=== PATIENT | male | born 1995 | race Caucasian/White ===

== ENCOUNTER 2020-09-17 17:53 | Emergency (ER) | payer BC, SELFPAY ==
[2020-09-17 17:54] VITALS: BP 124/71; PULSE 70; RESP 16; TEMP 37.5; O2SAT 97; BMI 30.1
[2020-09-17 17:57] VITALS: BP 124/71; PULSE 81; RESP 16; TEMP 37.5; O2SAT 96
--- NOTE | 2020-09-17 18:10 | ED.RN ---
PT DENIES ANY LOC WITH INJURY, PT WITH PAIN TO LEFT CHEEK, BRUISING NOTED UNDER LEFT EYE.
--- NOTE | 2020-09-17 18:44 | RAD_ITS ---
EXAM: XR LEFT SHOULDER COMPLETE, 2 OR MORE VIEWS : 1994 CLINICAL INDICATION: INjury TECHNIQUE: Two or more views of the left shoulder. This report was created using [employer] report generation technology. COMPARISON: None. FINDINGS: BONES/JOINTS: Unremarkable. No acute fracture. No subluxation. Normal alignment. Preservation of the joint space. No sclerotic or destructive changes observed. SOFT TISSUES: Unremarkable. No soft tissue swelling or gas. No radiopaque foreign body. RAD/Shoulder min 2 Views IMPRESSION: Negative left shoulder x-rays. at 1937 Reported and signed by: Jean Marie Cardenas MD Electronically Signed: Jean Marie Cardenas MD at 19:36 EDT Tel , Service support ,
--- NOTE | 2020-09-17 18:44 | CT_ITS ---
EXAM: CT HEAD WITHOUT INTRAVENOUS CONTRAST : 1994 CLINICAL INDICATION: Face injury TECHNIQUE: Multiple axial images were obtained of the head without intravenous contrast. This CT exam was performed using one or more of the following dose reduction techniques: automated exposure control, adjustment of the mA and/or kV according to patient size, and/or use of iterative reconstruction technique. This report was created using [employer] report generation technology. COMPARISON: None. FINDINGS: BRAIN AND EXTRA-AXIAL SPACES: Unremarkable. No intra- or extra-axial hemorrhage. No evidence of acute infarct. No intracranial mass or mass effect. There is preservation of the chun/white matter interface. Posterior fossa structures are unremarkable. Ventricles are appropriate for age. No hydrocephalus. Basal cisterns are patent. BONES/JOINTS: There is a fracture of the left zygomatic arch. No discrete lytic or blastic abnormalities. SINUSES: There is gas anterior to the left orbit and the lateral to the left maxillary sinus. MASTOID AIR CELLS: Unremarkable. Clear. ORBITS: Visualized globes, extraocular muscles, optic nerves and retrobulbar fat appear unremarkable. CT/Brain/Head without Contrast IMPRESSION: 1. No acute intracranial abnormality. 2. Fracture of the left zygomatic arch with gas anterior to the orbit and lateral to the left maxillary sinus. Further evaluation with CT scan of the facial bones is recommended. Individualized dose optimization techniques were used for this CT. at 1939 Reported and signed by: Jean Marie Cardenas MD Electronically Signed: Jean Marie Cardenas MD at 19:37 EDT Tel , Service support ,
--- NOTE | 2020-09-17 18:44 | CT_ITS ---
EXAM: CT MAXILLOFACIAL WITHOUT INTRAVENOUS CONTRAST : 1994 CLINICAL INDICATION: Trauma left sided face pain TECHNIQUE: Helically acquired images were obtained of the face without intravenous contrast. This CT exam was performed using one or more of the following dose reduction techniques: automated exposure control, adjustment of the mA and/or kV according to patient size, and/or use of iterative reconstruction technique. This report was created using [employer] report generation technology. COMPARISON: None. FINDINGS: BONES/JOINTS: There is a fracture of the left zygomatic arch. There is a fracture of the lateral wall of the left maxillary sinus. No discrete lytic or blastic abnormalities. SOFT TISSUES: See below. ORBITS: There is a small amount of gas in the retro-orbital fat and extraocular muscles. There is also gas anterior to the left orbit and lateral to the left maxillary sinus. Both globes are unremarkable. SINUSES: See above. MASTOID AIR CELLS: Unremarkable as visualized. Clear. DENTAL: No acute findings. No periodontal osseous erosion. CT/Sinus/Facial Bone IMPRESSION: Fractures of the left zygomatic arch and lateral wall of the left maxillary sinus. There is gas anterior to the orbit and lateral to the left maxillary sinus. There is minimal retro-orbital vascular is all extraconal. Individualized dose optimization techniques were used for this CT. at 1946 Reported and signed by: Jean Marie Cardenas MD Electronically Signed: Jean Marie Cardenas MD at 19:45 EDT Tel , Service support ,
--- NOTE | 2020-09-17 18:45 | EX.ED.DYSGE1 ---
HPI History of Present Illness Chief Complaint: Edema Informant: patient Narrative Narrative: Patient is a 25-year-old previously healthy male who presents to the emergency department for facial injury. He states that somebody ran into him with her head playing flag football today. He has been having severe pain since. He went to blow his nose and he felt the left side of his face blow up with air. Whenever he pushed on the face he felt air coming out around his gums. He denies any vision changes. No blurred vision or double vision. No ear pain or ringing. No neck pain. He is complaining of left shoulder pain. He has not taken anything for symptoms. No other injury noted. He did not have a loss of consciousness. He is not any blood thinning medications. PFSH PFSH Home Medications amoxicillin-pot clavulanate [Augmentin] 1 tab PO BID #10 tab 09/17/20 [Rx Last Taken Unknown] hydrocodone-acetaminophen 1 tab PO Q8H PRN 3 Days #10 tab 09/17/20 [Rx Last Taken Unknown] Allergy/AdvReac Type Severity Reaction Status Date / Time No Known Allergies Allergy Verified 09/17/20 17:57 Social History Smoking Status: Current some day smoker tobacco type: e-cigarettes ROS ROS ED Constitutional Constitutional ED: Denies chills or fever(s) Eyes Eyes: Denies blurry vision, change in vision or diplopia ENT ENT ED: Denies ear pain, epistaxis or rhinorrhea Cardiovascular Cardiovascular: Denies chest pain or palpitations Respiratory/Chest Respiratory/Chest: Denies cough or dyspnea Gastrointestinal Gastrointestinal: Denies abdominal pain, diarrhea, nausea or vomiting Musculoskeletal Musculoskeletal: Reports arthralgias; Denies back pain or neck pain Integumentary Denies rash Neurologic Neurologic: Reports headache(s); Denies dizziness, paresthesias or weakness EXAM Physical Exam Const Vital Signs: 09/17/20 17:54 09/17/20 17:57 Temperature 99.5 F H 99.5 F H Temperature Source Temporal Temporal Pulse Rate 70 81 Respiratory Rate 16 16 Blood Pressure 124/71 H 124/71 H Blood Pressure Mean 88 88 Pulse Ox 97 96 Oxygen Delivery Method Room Air Room Air Positive well nourished and well developed General Appearance ED: well developed and NAD HEENT Reports TM's clear and moist mucous membranes HEENT Narrative: There is swelling and bruising under the left eye. No proptosis. Full range of motion of ocular movements without pain. trauma Tympanic Membrane ED: Yes TM's clear Eyes PERRL and EOMs intact bilaterally Neck supple General: Negative for tenderness Chest Wall inspection of chest normal Resp normal respiratory effort and clear to auscultation bilaterally Auscultation: Negative for rales, rhonchi or wheezes Cardio regular rate, regular rhythm and no murmurs GI normal to inspection, nondistended, normoactive bowel sounds and non-tender Palpation: soft; Negative for guarding or rebound tenderness present Back/Spine Cervical Spine: Negative for cervical spine tenderness Thoracic Spine / Upper Back: Negative for thoracic spinal tenderness Lumbar Spine / Lower Back: Negative for lumbar spinal tenderness Extremity normal to inspection Extremity Narrative: Tenderness to superior part of left shoulder. No obvious deformity. Full range of motion. 2+ radial pulse. General Extremety ED: Negative for edema General Extremity: Negative for edema Neuro oriented x3, CN's II-XII intact bilaterally and no sensory deficits noted Sensorium / Orientation: alert Motor Exam: strength 5/5 throughout Psych mental status grossly normal Skin no rashes or lesions noted MDM MDM MDM Narrative Medical decision making narrative: Patient presents to the ED for facial injury. He does have swelling and bruising under the left eye but no evidence of impingement. He is also complaining of left shoulder pain. Will check CT scan of the head and facial bones. Will check x-rays of the shoulder and clavicle. Patient given a [place] for symptomatic treatment. Patient CT scan did show evidence of zygomatic arch and maxillary sinus wall fracture. No orbital entrapment. Patient placed on antibiotic and given sinus precautions. He is given referral for ear nose and throat. Given a prescription for pain medication. The rest of the imaging did not reveal any acute traumatic findings. Return precautions are reviewed with him. He understands and is agreeable to plan. Discharged home in stable condition. All questions are answered. Discharge Plan Triage Chief Complaint: Edema ED Provider: Denilson Powers Dx/Rx/DC Orders Clinical Impression: Closed fracture of zygomatic arch, Closed fracture of maxillary sinus Instructions: ED Facial Fracture Prescriptions: New hydrocodone-acetaminophen 5-325 mg tablet 1 tab PO Q8H PRN (Reason: pain) 3 Days Qty: 10 RF: 0 amoxicillin-pot clavulanate [Augmentin] 875-125 mg tablet 1 tab PO BID Qty: 10 RF: 0 Primary Care Provider: Noemí Cuellar Referrals: Noemí Cuellar MD [Primary Care Provider] - Sebastián Conner MD [STAFF PHYSICIAN] - 2 Days Disposition Disposition: Home, Self Care Discharge Date/Time: 09/17/20 21:04
--- NOTE | 2020-09-17 18:48 | RAD_ITS ---
STUDY: X-RAY - LEFT CLAVICLE REASON FOR EXAM: Male, 25 years old. Injury TECHNIQUE: Complementary view(s) of the clavicle. COMPARISON: None. FINDINGS: Normal clavicle. Normal acromioclavicular articulation. Normal visualized sternoclavicular articulation. Normal visualized pulmonary apex. RAD/Clavicle IMPRESSION: Normal x-ray examination of the clavicle. Electronically Signed: Jose M nKott MD at 19:24 EDT Tel , Service support ,
[2020-09-17] MEDS: HYDROcodone Bitartrate/Apap 5/325 Tablet PO (19:04)
== END 2020-09-17 21:04 | disposition home or self-care (01) ==
PROVIDERS: Emergency Provider Emergency Medicine; PCP Family Medicine
DX: S02.40FA Zygomatic fracture, left side, initial encounter for closed fracture (principal); S02.40DA Maxillary fracture, left side, initial encounter for closed fracture; M25.512 Pain in left shoulder; F17.290 Nicotine dependence, other tobacco product, uncomplicated; W50.0XXA Accidental hit or strike by another person, initial encounter; Y93.62 Activity, american flag or touch football; Y92.89 Other specified places as the place of occurrence of the external cause; Y99.8 Other external cause status
CPT/HCPCS: 70450; 70486; 73000; 73030; 99283; A4216